=== PATIENT | female | born 1970 | race Caucasian/White ===

== ENCOUNTER → 2016-04-29 | Outpatient (CLI) | payer OTHER ==
[~2016-04-29] MED LIST: CLIMARA0.1 MG/24 TD; IBUPROFEN200 MG PO
--- NOTE | 2016-05-07 07:59 | RADIOLOGY REPORT PS360 ---
DIG MAMM-SCREEN BRYN W/CAD CAD Screening ORDERING PHYSICIAN : Dennis Redman MD PATIENT AGE: 45 years GENDER: Female COMPARISON: Previous mammograms: September 2013 left mammogram Spot views. Bilateral mammogram July 2008Ju2013 . 2006, 2008 2011 2013 Ultrasound left breast July 2014 and 2013 INDICATION: Routine screening 45-year-old taking estrogen. Previous biopsy 7 next 10:00 left breast. No new complaints Noncontributory family history TECHNIQUE: Standard CC and MLO images were obtained. R2 CAD reviewed. Loss Axillary cc view both right and left breast --- FINDINGS: Areas of Moderately dense breast seen bilaterally. These more dense areas slightly decreased sensitivity mammography. RIGHT BREAST: Stable appearance of the fairly dense right breast. Inhomogeneous areas of planar tissue again noted. Unchanged LEFT BREAST: Asymmetric area of density at the superior left breast seen on today's MLO view is again seen appears more pronounced single MLO view view dissipates on the cc view. Lifting over prior studies this is has been variably seen multiple prior studies.. I reviewed ultrasound from 2013 2014 as well as mammograms dating back to 2006, 2008 2011 2013 which all show this somewhat variable region of density on MLO view.. For example this area Is been further evaluated on 2013 spot views and ultrasound. It was seen to compress out and been seen to dissipate on those studies as well . On today's study and does seem to dissipate here on cc views and axillary cc view and because of this I believe follow-up will be adequate... . However since it appears more pronounced today MLO view I would suggest a follow-up left mammogram in 6 months. I would direct patient self breast exam and physical exam to the lateral left breast. If progressive palpable fullness or changes here ultrasound and spot views would suggest. Ultrasound is a useful compliment to mammography areas of dense glandular tissue as seen here. Previous ultrasound showed dense fibroglandular tissue in this region IMPRESSION: Moderately Dense inhomogeneous breast bilaterally . Asymmetric area of density at superior left breast has been seen on multiple prior studies. It is accentuated on today's MLO view I believe due to to summation summation shadow, as it seems to dissipates on today's cc views . Similar appearance has been seen previously encountered. I would recommend a follow-up left mammogram in 6-8 months to confirm stability here. (note technologist please include MLO , 90 degree and axillary cc view at that follow-up) Would also direct self breast exam and/or physical exam to the lateral left breast. If any progressive density or concerning palpable areas developing clinically then ultrasound with spot views would be suggested. BI-RADS CATEGORY: 3_Probably Benign-Short Term F/U RECOMMENDED FOLLOWUP: 6M 6MONTH FOLLOW-UP (A letter has been sent to the patient regarding results of the study.)
== END ==
LOC: RAD 15:36
DX: Z12.31 Encounter for screening mammogram for malignant neoplasm of breast (principal)
CPT/HCPCS: G0202

== ENCOUNTER → 2016-05-05 | Outpatient (CLI) | payer OTHER ==
--- NOTE | 2016-05-05 16:22 | RADIOLOGY REPORT PS360 ---
PROCEDURE: 2-D M-mode and color Doppler study INDICATIONS FOR THE TEST: Chest pain+ COPD Heart Murmur Tobacco Smoking Palpitations+ Fatigue+ Syncope Edema Hypertension Diabetes Mellitus Rheumatic Fever SOB+SINGH+Obesity Hyperlipidemia Family History HD+ Additional History MVP PATIENT INFORMATION HEIGHT: 64 WEIGHT: 125 GENDER: Female B/P: 122/78 2-D/M-MODE INTERPRETATION: 2-D MEASUREMENTS OBSERVED VALUES IN CMS Right Ventricular Dimension (RVDd) 2.3 Interventricular Septum (Thickness)(IVsd) 0.8 Left Ventricular Internal Dimensions(LVIDd) 4.5 Left Ventricular Posterior Wall (Thickness)(LVPWd) 0.8 Aortic Root 2.0 Aortic Cusp Separation 2.0 Left Atrial Dimensions (LAD) 2.6 2D 1. Left atrium is normal size, left ventricle is normal size, there is no concentric left ventricular hypertrophy, visually estimated ejection fraction 55% with no obvious regional wall motion abnormality. 2. The right atrium and right ventricle are normal size and contractility. 3. The aortic valve is minimally thickened and fibrosed ,mitral and tricuspid valve are structurally normal, there is no obvious echocardiographic evidence of mitral valve prolapse. 4. The pulmonic valve is not well visualized. 5. No significant pericardial effusion noted. DOPPLER INTERROGATION: Doppler interrogation of the aortic mitral and tricuspid valve reveals presence of trace aortic, mild mitral and tricuspid regurgitation. Tricuspid regurgitant jet velocity insufficient for acquisition of the right ventricular systolic pressure, diastolic parameters are within normal range CONCLUSION: 1. Normal left ventricular size, preserved left ventricular systolic function, visually estimated to fraction 55% with no obvious regional wall motion abnormality. 2. Trace aortic, mild mitral and mild tricuspid regurgitation. 3. No obvious echocardiographic evidence of mitral valve prolapse. 4. No significant pericardial effusion noted.
--- OUTSIDE RECORDS SUMMARY | 2016-05-05 19:25 | External Medical Summary Rpt ---
Author Author , Organization [employer] Address Unknown Phone Unavailable Purpose Continuity of Care Document - through 2016
--- OUTSIDE RECORDS SUMMARY | 2016-05-05 19:26 | External Medical Summary Rpt ---
Demographics Preferred Language Lebanese Marital Status Unknown Roman Catholic Affiliation Unknown Race Unknown Ethnic Group Unknown Author Author , Organization [employer] Address Unknown Phone Unavailable Purpose Continuity of Care Document - through 2016 Immunization No patient found.
--- OUTSIDE RECORDS SUMMARY | 2016-05-05 19:26 | External Medical Summary Rpt ---
Demographics Preferred Language Honduran Marital Status Unknown Cheondoism Affiliation Unknown Race Unknown Ethnic Group Unknown Author Author , Organization [employer] Address Unknown Phone Unavailable Purpose Continuity of Care Document - through 2016 Immunization No patient found.
--- OUTSIDE RECORDS SUMMARY | 2016-05-05 19:26 | External Medical Summary Rpt ---
Author Author [facility], [employer] Organization [employer] Address Unknown Phone Unavailable
--- OUTSIDE RECORDS SUMMARY | 2016-05-05 19:26 | External Medical Summary Rpt ---
Author Author [employer] Organization [employer] Address Unknown Phone Unavailable Purpose Continuity of Care Document - through 2016
== END ==
LOC: RT 05-04 15:15
DX: I34.1 Nonrheumatic mitral (valve) prolapse (principal)

== ENCOUNTER 2016-06-22 08:10 | Day surgery (SDC) | payer OTHER ==
--- NOTE | 2016-06-22 09:29 | Operative Note ---
Upper GI Endoscopy Procedure date: 06/22/16 Date of : 68 Procedure:Upper GI Endoscopy Esophagogastroduodenoscopy with cold biopsies and TTS balloon dilation Indications: Mrs. Aguirre is a 45-year-old female with dyspepsia. She has had epigastric abdominal pain and nausea. She reports some early satiety. She also has had globus sensation and intermittent dysphagia. The patient had been on Nexium and metoclopramide which initially worked but became less effective over time. The patient has had constipation/obstipation which has improved with combined fiber bowel regimen (MiraLAX plus Metamucil). She has noted mild bloating and belching. She reports no pyrosis but is on esomeprazole. She reports no gassiness, melena or pyrosis. Performing Provider: Ezra Davis MD Referring Provider: Herman Lovett M.D. Sedation: Fentanyl 100 mg IV/Versed 7 mg IV Procedure: Prior to the procedure, a history and physical exam was performed, and patients medications and allergies were reviewed. The risks and benefits of the procedure and the sedation options and risks were discussed with the patient. All questions were answered and informed consent was obtained. The patient was brought to the procedure room. Patient identification and proposed procedure were verified by the physician and the nurse. The patient was placed in a left lateral decubitus position and the scope was passed under direct vision. Throughout the procedure, the patient's blood pressure, pulse, and oxygen saturations were monitored continuously. The endoscope was introduced through the mouth, and advanced to the second part of duodenum. The upper GI endoscopy was accomplished without difficulty. The patient tolerated the procedure well. Findings: The scope was passed directly into the upper esophagus and advanced to the third portion of the duodenum. The post bulbar duodenum and duodenal bulb were normal with normal mucosa and conniventes. The scope was withdrawn through a normal duodenal bulb and pylorus into the stomach. There was mild linear erythema of the antrum consistent with mild linear reactive gastritis. The remainder of the antrum, body and fundus of the stomach were grossly normal. Upon retroflexion there was no hiatal hernia. 2 biopsies were taken in the antrum and along the lesser curvature for histology and/or CLOtest. The scope was then withdrawn into the esophagus. There was a serrated Z line. Cold biopsies were taken at the GE junction to rule out intestinal metaplasia. There were tertiary contractions and evidence of mild esophageal dysmotility. The entire esophagus was dilated to 60 [place]/20 mm with a TTS hydrostatic balloon. There was mostly resistance at the upper esophageal sphincter/cricopharyngeus. The remainder of the esophageal mucosa was normal. Immediate complications: None EBL (ml): 0 Impression: 1. Nonerosive gastroesophageal reflux disease with moderate esophageal dysmotility and increased cricopharyngeal resting tone status post dilation to 20 mm 2. Mild linear peptic/reactive gastritis/antritis Recommendations: I do feel that the patient has functional dyspepsia/dysmotility type dyspepsia. I would consider adding promotility therapy and treatment for visceral sensitivity. I will follow up the biopsies. I will proceed with diagnostic colonoscopy. at 0951
--- NOTE | 2016-06-22 09:50 | Operative Note ---
Colonoscopy ([facility]an) Procedure date: 06/22/16 Date of : 68 Procedure:Colonoscopy Colonoscopy with cold biopsy Indications: Mrs. Aguirre is a 45-year-old female here for diagnostic colonoscopy. The patient does have dyspepsia. She also has constipation/obstipation which improved with combined fiber bowel regimen (MiraLAX plus Metamucil). She does have some occasional bleeding from internal hemorrhoids. She reports no hemorrhoidal prolapse. She reports no change in bowel habits, weight loss or family history of colon cancer. This is her first colonoscopy. Performing Provider: Ezra Davis MD Referrring Provider: Herman Lovett M.D. Sedation: Fentanyl 150 mg IV/Versed 9 mg IV (combined sedation for EGD/colon) Procedure: Prior to the procedure, a history and physical exam was performed, and patient medications and allergies were reviewed. The risks and benefits of the procedure and the sedation options and risks were discussed with the patient. All questions were answered and informed consent was obtained. Patient identification and proposed procedure were verified by the physician and the nurse. The patient was placed in a left lateral decubitus position. Throughout the procedure, the patient's blood pressure, pulse, and oxygen saturations were monitored continuously. Findings: On digital rectal examination there was normal rectal tone. There were no external hemorrhoids. The colonoscope was introduced through the anal canal to the rectum and advanced to the cecum. The ileocecal valve and appendiceal orifice were identified. The scope was advanced a short distance into the ileum which appeared grossly normal. The scope was then withdrawn into the colon. The cecum, ascending, transverse, descending, sigmoid and rectum were grossly normal. There was a single diminutive polyp in the descending colon removed via cold biopsy. There were no mucosal abnormalities identified. Upon retroflexion within the rectum there were grade 1 internal hemorrhoids. Impressions: 1. Diminutive descending polyp 2. Grade 1 internal hemorrhoids Recommendations: I would continue the fiber bowel regimen. We will discuss additional dietary measures. I will follow up the polyp histology. I would consider repeat surveillance based upon the polyp pathology/histology. Complications: None EBL (ml): 0 at 0950
[2016-06-22 15:29] VITALS: BP 97/62
== END 2016-06-22 10:50 | disposition home or self-care (01) ==
LOC: SDC 08:10
PROVIDERS: Internal Medicine Gastroenterology
PROC: 0DB78ZX Excision of Stomach, Pylorus, Via Natural or Artificial Opening Endoscopic, Diagnostic (ICD-10-PCS; 2016-06-22)
PROC: 0D758ZZ Dilation of Esophagus, Via Natural or Artificial Opening Endoscopic (ICD-10-PCS; 2016-06-22)
PROC: 0DBM8ZX Excision of Descending Colon, Via Natural or Artificial Opening Endoscopic, Diagnostic (ICD-10-PCS; principal; 2016-06-22 09:00)
DX: D12.4 Benign neoplasm of descending colon (principal); K64.0 First degree hemorrhoids; K59.00 Constipation, unspecified; K21.9 Gastro-esophageal reflux disease without esophagitis; K22.4 Dyskinesia of esophagus; K29.70 Gastritis, unspecified, without bleeding
CPT/HCPCS: C1726

== ENCOUNTER → 2016-11-16 | Outpatient (CLI) | payer OTHER ==
--- NOTE | 2016-11-19 12:28 | RADIOLOGY REPORT PS360 ---
DIG MAMM-DX BRYN W/CAD COMPARISON: Digital mammograms 04/29/2016 INDICATION: 6 month follow-up evaluation of possible asymmetric density left breast TECHNIQUE: Standard MLO and CC views were obtained along with exaggerated CC view and 90 degrees lateral view FINDINGS: The possible asymmetric density is again only definitely seen on MLO projection. It appears to compress out on the CC and exaggerated cc view. And appears less worrisome on the 90 degrees lateral view. This likely is a summation shadow of fibroglandular tissue especially since I cannot identify any asymmetric or suspicious lesion on the cc views. IMPRESSION: No definite or persistent suspicious density left breast and recommend patient continue with yearly screening mammography in approximately 6 months. BI-RADS CATEGORY: 1_Negative RECOMMENDED FOLLOWUP: 6M 6MONTH FOLLOW-UP to return to normal yearly screening schedule (A letter has been sent to the patient regarding results of the study.)
== END ==
LOC: RAD 13:33
DX: R92.8 Other abnormal and inconclusive findings on diagnostic imaging of breast (principal)